=== PATIENT | female | born 1955 | race Caucasian/White ===

== ENCOUNTER 2021-06-16 19:08 | Inpatient (IN) | payer OTHER, MEDICAID ==
[~2021-06-16] VITALS: Ht 167.6 cm; Wt 89.0 kg
[2021-06-16 19:30] LABS: Basophils # (auto) 0.1 10 ^3/uL (0-0.2); Eosinophils # (auto) 0.1 10 ^3/uL (0-0.8); Lymphocytes # (auto) 0.9 10 ^3/uL (0.4-5.4); Neutrophils # (auto) 11.4 10 ^3/uL (1.6-8.6)
[2021-06-16 19:31] LABS: Basophils % (auto) 0.5 % (0.0-2.0); Eosinophils % (auto) 0.7 % (0.0-7.0); Hematocrit 31.4 % (36.0-46.0); Hemoglobin 9.7 g/dL (12.2-16.2); Lymphocytes % (auto) 6.8 % (10.0-50.0); Mean Corpuscular Hemoglobin 23.7 pg (28.0-32.0); Mean Corpuscular Hgb Conc. 30.8 g/dL (32.0-36.0); Monocytes # (auto) 1.2 10 ^3/uL (0-1.3); Monocytes % (auto) 8.5 % (0.0-12.0); Neutrophils % (auto) 83.5 % (37.0-80.0); Nucleated Red Blood Cells % 0.1 %; Red Blood Cells 4.08 10^6/uL (4.0-5.20); Red Cell Distribution Width 17.5 % (11.8-14.3); White Blood Cell 13.7 10^3/uL (4.4-10.8)
[2021-06-16 19:48] LABS: Albumin 3.3 g/dL (3.4-5.0); Calcium 8.4 mg/dL (8.5-10.1); Magnesium 2.2 mg/dL (1.6-2.6); Potassium 4.4 mmol/L (3.5-5.1)
[2021-06-16 19:52] LABS: BUN/Creatinine Ratio 16.7; Bilirubin, Total 0.5 mg/dL (0.2-1.0); Total Protein 6.9 g/dL (6.4-8.2)
[2021-06-16] MEDS ORDERED: IPRATROPIUM BROM 0.5 MG/2.5ML INH SOL NEB ONE (20:00)
[2021-06-16] MEDS ORDERED: ALBUTEROL SULF 2.5 MG/0.5ML(0.5%) NEB SOLN NEB ONE (20:00)
[2021-06-16 22:00] VITALS: BP 104/50
[2021-06-17] MEDS ORDERED: AZITHROMYCIN 500MG/ 250ML 250 ML IV ONE ×2 (00:45→14:15)
[2021-06-17] MEDS ORDERED: cefTRIAXone 1GM/50ML D5W 50 ML IV ONE (00:45)
[2021-06-17] MEDS: FUROSEMIDE 40 MG/4 ML VIAL IV SCH ×3 (00:53→21:30)
[2021-06-17] MEDS: SODIUM CHLOR 0.9% PF (SALINE LOCK) 10ML VIAL/SYR IV SCH ×4 (00:55→21:30)
[2021-06-17 03:42] VITALS: BP 113/67
[2021-06-17] MEDS ORDERED: POTA10TA51 PO (05:04)
[2021-06-17] MEDS ORDERED: AMIT25TA12 PO (05:04)
[2021-06-17] MEDS ORDERED: FURO1TAB31 PO (05:04)
[2021-06-17] MEDS ORDERED: PREG150C PO (05:04)
[2021-06-17] MEDS ORDERED: ASPI1TAB20 PO (05:04)
[2021-06-17] MEDS ORDERED: CARV6.2551 PO (05:04)
[2021-06-17] MEDS ORDERED: LEVO112T4 PO (05:04)
[2021-06-17] MEDS ORDERED: DULO60CA PO (05:04)
[2021-06-17] MEDS ORDERED: LOSA-69 PO (05:04)
[2021-06-17] MEDS ORDERED: SIMV-8 PO (05:04)
[2021-06-17] MEDS ORDERED: CLOP75TA28 PO (05:04)
[2021-06-17] MEDS: ALBUTEROL SULF 2.5 MG/0.5ML(0.5%) NEB SOLN NEB SCH ×3 (06:46→18:14)
[2021-06-17] MEDS: IPRATROPIUM BROM 0.5 MG/2.5ML INH SOL NEB SCH ×3 (06:46→18:14)
[2021-06-17 09:11] VITALS: BP 109/58
[2021-06-17 13:00] VITALS: BP 122/65
[2021-06-17] MEDS ORDERED: ONDANSETRON HCL 4 MG/2 ML VIAL IV PRN (14:15)
[2021-06-17] MEDS ORDERED: CLOPIDOGREL BISULFATE 75 MG TAB PO ONE (14:15)
[2021-06-17] MEDS ORDERED: ASPirin 81 mg TAB PO ONE (14:15)
[2021-06-17] MEDS ORDERED: ACETAMINOPHEN 325 MG TAB PO PRN (14:15)
[2021-06-17] MEDS ORDERED: methylPREDNISolone SOD SUCC 125 MG/2 ML VL IV ONE (14:15)
[2021-06-17] MEDS ORDERED: PANTOPRAZOLE 40 MG TAB PO ONE (14:15)
[2021-06-17] MEDS ORDERED: TEMAZEPAM 15 MG CAP PO PRN (14:15)
[2021-06-17] MEDS ORDERED: NICOTINE 21MG/24 HR TOPICAL PATCH TD ONE (14:30)
[2021-06-17 17:08] VITALS: BP 121/66
[2021-06-17 21:28] VITALS: BP 114/58
[2021-06-17] MEDS: methylPREDNISolone SOD SUCC 40 MG/ML VL IV SCH (21:31)
[2021-06-17] MEDS: CARVEDILOL 3.125 MG TAB PO SCH (21:31)
[2021-06-17] MEDS: PIPERACILLIN-TAZOB 3.375GM 100 ML IV SCH (21:31)
[2021-06-17] MEDS: ATORVASTATIN 20 MG TAB PO SCH (21:31)
[2021-06-17] MEDS: PREGABALIN CAPSULE 75 MG CAP PO SCH (21:32)
[2021-06-18] MEDS: IPRATROPIUM BROM 0.5 MG/2.5ML INH SOL NEB SCH ×4 (00:16→18:56)
[2021-06-18] MEDS: ALBUTEROL SULF 2.5 MG/0.5ML(0.5%) NEB SOLN NEB SCH ×4 (00:16→18:56)
[2021-06-18 04:50] VITALS: BP 126/62
[2021-06-18 05:21] LABS: Basophils # (auto) 0 10 ^3/uL (0-0.2); Basophils % (auto) 0.4 % (0.0-2.0); Eosinophils # (auto) 0 10 ^3/uL (0-0.8); Eosinophils % (auto) 0.2 % (0.0-7.0); Hematocrit 28.1 % (36.0-46.0); Hemoglobin 8.7 g/dL (12.2-16.2); Lymphocytes # (auto) 0.3 10 ^3/uL (0.4-5.4); Lymphocytes % (auto) 5.7 % (10.0-50.0); Mean Corpuscular Hemoglobin 24.1 pg (28.0-32.0); Mean Corpuscular Volume 77.7 fL (80.0-100.0); Monocytes # (auto) 0.3 10 ^3/uL (0-1.3); Monocytes % (auto) 5.4 % (0.0-12.0); Neutrophils # (auto) 4.3 10 ^3/uL (1.6-8.6); Neutrophils % (auto) 88.3 % (37.0-80.0); Nucleated Red Blood Cells % 0.1 %; Red Blood Cells 3.62 10^6/uL (4.0-5.20); Red Cell Distribution Width 17.2 % (11.8-14.3); White Blood Cell 4.8 10^3/uL (4.4-10.8)
[2021-06-18] MEDS: SODIUM CHLOR 0.9% PF (SALINE LOCK) 10ML VIAL/SYR IV SCH ×3 (05:31→22:23)
[2021-06-18] MEDS: PIPERACILLIN-TAZOB 3.375GM 100 ML IV SCH ×3 (05:31→22:24)
[2021-06-18 05:42] LABS: BUN/Creatinine Ratio 22.9; Calcium 8.4 mg/dL (8.5-10.1); Magnesium 2.3 mg/dL (1.6-2.6); Potassium 4.4 mmol/L (3.5-5.1)
[2021-06-18] MEDS: LEVOTHYROXINE SODIUM 112 MCG TAB PO SCH (06:56)
[2021-06-18 08:25] VITALS: BP 121/58
[2021-06-18] MEDS: AZITHROMYCIN 500MG/ 250ML 250 ML IV SCH (09:57)
[2021-06-18] MEDS: NICOTINE 21MG/24 HR TOPICAL PATCH TD SCH (09:58)
[2021-06-18] MEDS: methylPREDNISolone SOD SUCC 40 MG/ML VL IV SCH ×2 (09:58→22:24)
[2021-06-18] MEDS: ASPirin 81 mg TAB PO SCH (09:59)
[2021-06-18] MEDS: FUROSEMIDE 40 MG/4 ML VIAL IV SCH (09:59)
[2021-06-18] MEDS: PANTOPRAZOLE 40 MG TAB PO SCH (10:00)
[2021-06-18] MEDS: CLOPIDOGREL BISULFATE 75 MG TAB PO SCH (10:00)
[2021-06-18] MEDS: CARVEDILOL 3.125 MG TAB PO SCH ×2 (10:01→22:24)
[2021-06-18] MEDS: PREGABALIN CAPSULE 75 MG CAP PO SCH ×2 (10:01→22:25)
[2021-06-18] MEDS: LOSARTAN POTASSIUM 50 MG TAB PO SCH (10:02)
[2021-06-18] MEDS: DULoxetine HCL 30 MG CAP PO SCH (10:03)
[2021-06-18 12:20] VITALS: BP 124/61
[2021-06-18 16:20] VITALS: BP 103/61
[2021-06-18] MEDS: FUROSEMIDE 100 MG/10ML VIAL IV SCH (17:10)
[2021-06-18 22:00] VITALS: BP 105/44
[2021-06-18] MEDS: ATORVASTATIN 20 MG TAB PO SCH (22:24)
[2021-06-19] MEDS: ALBUTEROL SULF 2.5 MG/0.5ML(0.5%) NEB SOLN NEB SCH ×3 (00:11→10:49)
[2021-06-19] MEDS: IPRATROPIUM BROM 0.5 MG/2.5ML INH SOL NEB SCH ×3 (00:11→10:49)
[2021-06-19 05:00] VITALS: BP 111/58
[2021-06-19] MEDS: FUROSEMIDE 100 MG/10ML VIAL IV SCH (05:49)
[2021-06-19] MEDS: PIPERACILLIN-TAZOB 3.375GM 100 ML IV SCH ×2 (05:49→15:15)
[2021-06-19] MEDS: SODIUM CHLOR 0.9% PF (SALINE LOCK) 10ML VIAL/SYR IV SCH ×2 (05:49→14:00)
[2021-06-19] MEDS: LEVOTHYROXINE SODIUM 112 MCG TAB PO SCH (05:50)
[2021-06-19 08:15] VITALS: BP 119/54
[2021-06-19] MEDS ORDERED: DAPAGLIFLOZIN 5 MG TAB PO SCH (10:00)
[2021-06-19 10:04] LABS: Albumin 3.1 g/dL (3.4-5.0); Calcium 8.7 mg/dL (8.5-10.1); Magnesium 2.1 mg/dL (1.6-2.6); Potassium 3.8 mmol/L (3.5-5.1)
[2021-06-19] MEDS: CLOPIDOGREL BISULFATE 75 MG TAB PO SCH (10:04)
[2021-06-19] MEDS: LOSARTAN POTASSIUM 50 MG TAB PO SCH (10:05)
[2021-06-19] MEDS: ASPirin 81 mg TAB PO SCH (10:07)
[2021-06-19 10:08] LABS: BUN/Creatinine Ratio 30.4; Bilirubin, Total 0.4 mg/dL (0.2-1.0)
[2021-06-19] MEDS: DULoxetine HCL 30 MG CAP PO SCH (10:08)
[2021-06-19] MEDS: PANTOPRAZOLE 40 MG TAB PO SCH (10:09)
[2021-06-19] MEDS: PREGABALIN CAPSULE 75 MG CAP PO SCH (10:10)
[2021-06-19] MEDS: CARVEDILOL 3.125 MG TAB PO SCH (10:10)
[2021-06-19] MEDS: AZITHROMYCIN 500MG/ 250ML 250 ML IV SCH (10:12)
[2021-06-19] MEDS: methylPREDNISolone SOD SUCC 40 MG/ML VL IV SCH (10:12)
[2021-06-19] MEDS: NICOTINE 21MG/24 HR TOPICAL PATCH TD SCH (10:14)
[2021-06-19 12:25] VITALS: BP 110/56
[2021-06-19] MEDS ORDERED: METH4PAK PO (15:44)
[2021-06-19] MEDS ORDERED: AZITTAB PO (15:44)
[2021-06-19] MEDS ORDERED: DAPA1TAB4 PO (15:44)
[2021-06-19] MEDS ORDERED: AMOX500T86 PO (15:44)
[2021-06-19] MEDS ORDERED: FURO1TAB31 PO (15:46)
[2021-06-19 16:30] VITALS: BP 116/53
[2021-06-19 17:08] VITALS: BP 116/53
[2021-06-19 17:21] VITALS: BP 116/53
== END 2021-06-19 18:35 | disposition home or self-care (01) | DRG 193 ==
LOC: EDBD 19:08 → ER 19:09 → TELE 06-17 00:28 → TELE-EAST 06-17 03:10
PROVIDERS: ADMIT Internal Medicine; ATTEND Internal Medicine Geriatric Medicine
PROC: 5A09357 Assistance with Respiratory Ventilation, Less than 24 Consecutive Hours, Continuous Positive Airway Pressure (ICD-10-PCS; principal; 2021-06-16)
DX: J18.9 Pneumonia, unspecified organism (principal); J96.21 Acute and chronic respiratory failure with hypoxia; I50.43 Acute on chronic combined systolic (congestive) and diastolic (congestive) heart failure; J44.0 Chronic obstructive pulmonary disease with (acute) lower respiratory infection; J44.1 Chronic obstructive pulmonary disease with (acute) exacerbation; J98.11 Atelectasis; J91.8 Pleural effusion in other conditions classified elsewhere; I25.10 Atherosclerotic heart disease of native coronary artery without angina pectoris; F17.210 Nicotine dependence, cigarettes, uncomplicated; I11.0 Hypertensive heart disease with heart failure; Z20.822 Contact with and (suspected) exposure to COVID-19; E66.9 Obesity, unspecified; Z79.82 Long term (current) use of aspirin; Z82.49 Family history of ischemic heart disease and other diseases of the circulatory system; Z98.61 Coronary angioplasty status; Z83.3 Family history of diabetes mellitus; Z99.81 Dependence on supplemental oxygen; Z79.899 Other long term (current) drug therapy; Z68.31 Body mass index [BMI] 31.0-31.9, adult
CPT/HCPCS: 36415; 36600; 71045; 71250; 80048; 80053; 82805; 83605; 83735; 83880; 84484; 85025; 87040; 87086; 93306; 94640; 94660; 96365; 96367; G0378; J0696; J2543